=== PATIENT | female | born 1970 | race Caucasian/White ===

== ENCOUNTER 2023-04-29 00:46 | Observation (INO) | payer BC, SELFPAY ==
[2023-04-29] VITALS (10 sets, daily range): BP systolic 155–197; BP diastolic 76–97; PULSE 54–67; RESP 12–22; TEMP 36.8–36.9; O2SAT 91–100; BMI 30.9
--- NOTE | 2023-04-29 01:02 | CT_ITS ---
PROCEDURE INFORMATION: Exam: CT Abdomen And Pelvis With Contrast Exam date and time: 04/29/2023 1:34 AM Age: 52 years old Clinical indication: Abdominal pain; Epigastric; Additional info: Epigastric ap TECHNIQUE: Imaging protocol: Computed tomography of the abdomen and pelvis with contrast. Radiation optimization: All CT scans at this facility use at least one of these dose optimization techniques: automated exposure control; mA and/or kV adjustment per patient size (includes targeted exams where dose is matched to clinical indication); or iterative reconstruction. Contrast material: ISOVUE; Contrast volume: 75 ml; Contrast route: IV; REPORTING DATA: Count of CT and Cardiac NM exams in prior 12 months: This patient has received 0 known CTs and 0 known cardiac nuclear medicine studies in the 12 months prior to the current study. COMPARISON: No relevant prior studies available. FINDINGS: Liver: There are low-density lesions in the liver which most likely reflect a combination of cysts and/or hemangiomas. Gallbladder and bile ducts: The patient is status post cholecystectomy. Pancreas: The pancreas is of normal size and morphology, without evidence of masses, cysts, or calcifications. The pancreatic duct is not dilated. Spleen: The spleen is normal in size and attenuation. No splenic masses or cysts are observed. Adrenal glands: The adrenal glands appear normal. Kidneys and ureters: Both kidneys are of normal size and show uniform attenuation. There are no renal masses, cysts, or calculi. The adrenal glands appear normal. Stomach and bowel: Mild fluid distention of small-bowel loops. Appendix: No evidence of appendicitis. Intraperitoneal space: Unremarkable. No free air. No significant fluid collection. Vasculature: Multiple pelvic phleboliths are present. Lymph nodes: No enlarged or pathological lymph nodes are identified in the abdomen or pelvis. Urinary bladder: Unremarkable as visualized. Reproductive: The patient has undergone prior hysterectomy. Bones/joints: The visualized osseous structures of the abdomen and pelvis appear intact and normal for patient age with no evidence of fractures or lytic or sclerotic lesions. Soft tissues: There is a small fat containing umbilical hernia. IMPRESSION: 1. No definite signs of inflammatory conditions, masses, adenopathy, or collections were observed in the abdomen or pelvis at the time of imaging. Additionally, the urinary tract and gastrointestinal system did not show any evidence of obstruction on the images acquired. 2. Otherwise, incidental findings as above.
--- NOTE | 2023-04-29 01:04 | HMH.EDGENADL ---
Discharge Plan Disposition Patient Disposition: Admitted Condition: Good Chief Complaint: Abdominal Pain Prescriptions Prescriptions: No Action cyclobenzaprine 10 MG tablet 10 mg PO TID PRN (Reason: MUSCLE RELAXER) levothyroxine 75 MCG tablet 75 mcg PO DAILY estradiol 1 MG tablet 1 mg PO DAILY diclofenac potassium 50 MG tablet 50 mg PO BID gabapentin 300 MG capsule 300 mg PO BID azithromycin 250 MG tablet 250 mg PO UD DOSE PK Qty: 6 0RF Rx Instructions: Take two (2) tablets today, then one (1) tablet days #2 thru #5 methylprednisolone 4 MG tablets,dose pack 4 mg PO DIRECTED 6 Days Qty: 21 0RF kggjzrrqyijoxts-ceeiepylb-XV 118 ML syrup 5 ml PO Q6HP PRN (Reason: Cough) Qty: 240 0RF Referrals Follow up/Referrals: Fadi Montesinos APRN [Primary Care Provider] - See instructions Clinical Impressions Clinical Impression: Abdominal pain Instructions Patient Instructions: DI for Acute Abdominal Pain Discharge ED Provider: Charu Kurtz General Adult HPI General Chief complaint: Abdominal Pain Stated complaint: Stomach pain with vomiting Time Seen by Provider: 04/29/23 00:56 History of Present Illness HPI narrative: Patient has a PMHx significant for hyperlipidemia, diabetes, anxiety, depression who presents to the ED with complaints of epigastric abdominal pain. Patient notes that since 4:30 PM this afternoon, she has been having worsening epigastric abdominal pain. Patient describes the pain as a stabbing sensation shooting towards her back and into her chest patient Dors is nausea vomiting with 4 episodes of emesis, all nonbloody. Patient denies any prior history of excessive alcohol use or pancreatitis. Related Data Home Medications Medication Instructions Recorded Confirmed cyclobenzaprine 10 mg tablet 10 mg PO TID PRN MUSCLE RELAXER 01/29/19 01/29/19 diclofenac potassium 50 mg tablet 50 mg PO BID Pain 01/29/19 01/29/19 estradiol 1 mg tablet 1 mg PO DAILY ESTROGEN REPLACEMENT 01/29/19 01/29/19 gabapentin 300 mg capsule 300 mg PO BID Pain 01/29/19 01/29/19 levothyroxine 75 mcg tablet 75 mcg PO DAILY THYROID REPLACEMENT 01/29/19 01/29/19 Previous Rx's Medication Instructions Recorded azithromycin 250 mg tablet 250 mg PO UD DOSE PK #6 tabs 01/29/19 uilqsyhkusnbnwc-oocnjlmtyiomzyk-LP 5 ml PO Q6HP PRN Cough ##240 01/29/19 2 mg-30 mg-10 mg/5 mL oral syrup methylprednisolone 4 mg tablets in 4 mg PO DIRECTED 6 days ##21 01/29/19 a dose pack Allergies Allergy/AdvReac Type Severity Reaction Status Date / Time acetaminophen [From Lortab] Allergy Verified 01/29/19 14:33 codeine Allergy Verified 01/29/19 14:33 hydrocodone [From Lortab] Allergy Verified 01/29/19 14:33 Tetracyclines Allergy Verified 01/29/19 14:33 tramadol Allergy Verified 01/29/19 14:33 PFSH PFS Disclaimer: The information contained in this section may have been updated after the patient was seen, as this information can be updated by other users. Social History Smoking Status: Current every day smoker tobacco type: cigarettes packs per day: 1 alcohol intake: never current occupational status: other Travel in the last 8 weeks: None ROS Obtained: Yes All systems reviewed & no additional complaints except as documented Physical Exam General General appearance: alert and in no apparent distress Head Head exam: atraumatic, normocephalic and normal inspection Eye Eye exam: Present normal appearance, PERRL and EOMI; Absent scleral icterus or nystagmus ENT ENT exam: Present normal exam, mucous membranes moist and normal external ear exam Neck Neck exam: Present normal inspection, full ROM and trachea midline Chest Chest inspection: Present normal inspection and symmetric chest wall rise; Absent tenderness Respiratory Respiratory exam: Present normal lung sounds bilaterally; Absent respiratory distress, wheezes or accessory muscle use Cardiov
[2023-04-29 01:17] LABS: Basophils % 0.2 % (0.1-2.0); Eosinophils # 0.1 K/mm3 (0.0-0.4); Hematocrit 41.2 % (37.0-47.0); Hemoglobin 13.7 g/dL (12.2-16.2); Lymphocytes % 9.4 % (10-50); Mean Corpuscular HGB Conc 33.3 g/dL (31.8-35.4); Mean Corpuscular Hemoglobin 29.4 pg (27.0-31.2); Mean Corpuscular Volume 88.3 fl (81-99); Mean Platelet Volume 8.6 fl (7.4-10.4); Monocytes # 0.3 K/mm3 (0.1-1.0); Monocytes % 2.3 % (1.7-9.3); Neutrophils # 9.4 K/mm3 (1.8-7.8); Neutrophils % 87.1 % (37.0-80.0); Platelet Count 269 K/mm3 (142-424); Red Blood Count 4.67 M/mm3 (4.20-5.40); White Blood Count 10.8 K/mm3 (4.8-10.8)
[2023-04-29 01:21] LABS: MANUAL DIFFERENTIAL MANUAL DIFFERENTIAL (MANUAL DIFF)
[2023-04-29 01:28] LABS: Alanine Aminotransferase 39 U/L (12-78); Albumin Level 4.7 g/dl (3.5-5.0); Albumin/Globulin Ratio 1.4 (1.1-1.8); Alkaline Phosphatase 128 U/L (38-126); Anion Gap 11.6 mEq/L (5-15); Aspartate Amino Transferase 36 U/L (14-36); Bilirubin,Total 0.4 mg/dl (0.2-1.3); Blood Urea Nitrogen 12 mg/dl (7-17); Calcium 9.3 mg/dl (8.4-10.2); Carbon Dioxide 23 mmol/L (22.0-30.0); Chloride 103 mmol/L (98-107); Creatinine Clearance Estimated 119 mL/min (50-200); Estimated Glomerular Filt Rate 88 ml/min (>60); GFR (African American) 107 ML/MIN (>60); Globulin 3.3 g/dL (1.3-3.2); Glucose 174 mg/dl (74-100); Lipase 75 U/L (23-300); Potassium 3.6 mmoL/L (3.5-5.1); Sodium 134 mmol/L (136-145)
[2023-04-29 01:29] LABS: Microscopic, Urine URINE MICROSCOPIC (MICROSCOPIC)
[2023-04-29 01:32] LABS: Appearance,Urine CLEAR (Clear); Bilirubin,Urine Negative (Negative); Blood, Urine TRACE-I (Negative); Color,Urine YELLOW (Yellow); Glucose,Urine (UA) TRACE (Negative); Ketones,Urine 1+ (Negative); Leukocyte Esterase,Urine Negative (Negative); Nitrate,Urine Negative (Negative); PH,Urine 8.5 (5.0-8.5); Protein,Urine TRACE (Negative); Urobilinogen,Urine 0.2 EU/dl (0.2)
[2023-04-29 01:32] LABS: Lactic Acid 3.1 mmol/L (0.7-2.1)
[2023-04-29 01:37] LABS: Eosinophils % 2 % (0-3); Lymphocytes % 11 % (10-50); Monocytes % 2 % (2-9); Neutrophils % 85 % (42-76); Platelet Estimate Normal; RBC Morphology Normal; Total Cells Counted 100
[2023-04-29 01:40] LABS: Troponin I < 0.01 ng/ml (0.00-0.034)
--- NOTE | 2023-04-29 01:42 | ECG_ITS ---
APPROVED REPORT Exam: Resting ECG HR:58 bpm ECG Measurements Heart Rate 58 AXES AR 156 P 43 QRSd 96 QRS 63 QT 469 T 48 QTc 466 Conclusion SINUS BRADYCARDIA MODERATE ST DEPRESSION [0.05+ mV ST DEPRESSION] ABNORMAL ECG UNCONFIRMED REPORT Electronically signed by : Ottoniel Manzo MD 04/29/2023 08:25:32
[2023-04-29 01:47] LABS: Squamous Epithelial Cell,Urine Occasional #/hpf (0-5)
[2023-04-29 03:09] LABS: Reflex Lactic Add Lactic Reflex
[2023-04-29 03:23] LABS: Lactic Acid Follow Up (RFLX 1) 2.9 mmol/L (0.7-2.1)
[2023-04-29 03:36] LABS: Troponin I < 0.01 ng/ml (0.00-0.034)
--- NOTE | 2023-04-29 03:40 | PC.NURSE ---
OBSERVATION ADMISSION TO 279 WITH DX OF LACTIC ACIDOSIS TO THE HOSPITALIST.
--- NOTE | 2023-04-29 03:45 | PC.NURSE ---
Report receieved from Staci rn, pt coming up via wheelchair
--- NOTE | 2023-04-29 03:45 | PC.NURSE ---
Report called to ROXY Chen
--- NOTE | 2023-04-29 04:38 | EXP.HPDC ---
General Admission date:: 04/29/23 Discharge date: 04/29/23 *Admission Date: 04/29/23 *Chief complaint: abdominal pain *History of present illness: Patient has a PMHx significant for hyperlipidemia, diabetes, anxiety, depression who presents to the ED with complaints of epigastric abdominal pain. Patient notes that since 4:30 PM this afternoon, she has been having worsening epigastric abdominal pain. Patient describes the pain as a stabbing sensation shooting towards her back and into her chest patient Dors is nausea vomiting with 4 episodes of emesis, all nonbloody. Patient denies any prior history of excessive alcohol use or pancreatitis. [facility] Disclaimer: The information contained in this section may have been updated after the patient was seen, as this information can be updated by other users. Medical History (Updated 04/29/23 @ 05:00 by Valentín Rolon APRN) COPD (chronic obstructive pulmonary disease) Diabetes mellitus type 1 Fibromyalgia History of gastroesophageal reflux (GERD) Surgical History (Updated 04/29/23 @ 04:06 by April Santiago RN) History of cholecystectomy History of colonoscopy History of hysterectomy Social History (Updated 04/29/23 @ 04:07 by April Santiago RN) Smoking Status: Current every day smoker tobacco type: cigarettes packs per day: 1 alcohol intake: never current occupational status: other Travel in the last 8 weeks: None marital status: single Review of Systems Review of Systems Review of systems:: pertinent systems reviewed and negative unless documented below Exam Data for Last 24 hours Vital signs and Labs for Last 24 Hours: Temp Pulse Resp BP Pulse Ox O2 Del Method 98.5 F 65 18 155/76 H 98 Room Air 04/29/23 04:18 04/29/23 04:18 04/29/23 04:18 04/29/23 04:18 04/29/23 04:19 04/29/23 04:19 Laboratory Results - last 24 hr 04/29/23 01:05: WBC 10.8, RBC 4.67, Hgb 13.7, Hct 41.2, MCV 88.3, MCH 29.4, MCHC 33.3, RDW 15.0, Plt Count 269, MPV 8.6, Neut % (Auto) 87.1 H, Lymph % (Auto) 9.4 L, [place] % (Auto) 2.3, Eos % (Auto) 1.0, Baso % (Auto) 0.2, Neut # (Auto) 9.4 H, Lymph # (Auto) 1.0, [place] # (Auto) 0.3, Eos # (Auto) 0.1, Baso # (Auto) 0.0, Total Counted 100, Neutrophils % (Manual) 85 H, Lymphocytes % (Manual) 11, Monocytes % (Manual) 2, Eosinophils % (Manual) 2, Platelet Estimate Normal, RBC Morphology Normal, Sodium 134 L, Potassium 3.6, Chloride 103, Carbon Dioxide 23, Anion Gap 11.6, BUN 12, Creatinine 0.70, Estimated Creat Clear 119, Estimated GFR 88, Est GFR ( Amer) 107, Glucose 174 H, Lactate 3.1 H, Calcium 9.3, Total Bilirubin 0.4, AST 36, ALT 39, Alkaline Phosphatase 128 H, Troponin I < 0.01, Total Protein 8.0, Albumin 4.7, Globulin 3.3 H, Albumin/Globulin Ratio 1.4, Lipase 75 04/29/23 01:22: Urine Color Yellow, Urine Appearance Clear, Urine pH 8.5, Ur Specific [place] 1.020, Urine Protein Trace, Urine Glucose (UA) Trace, Urine Ketones 1+, Urine Blood Trace-i, Urine Nitrate Negative, Urine Bilirubin Negative, Urine Urobilinogen 0.2, Ur Leukocyte Esterase Negative, Urine RBC 3-5, Urine WBC None, Ur Squamous Epith Cells Occasional 04/29/23 03:04: Lactate 2.9 H, Troponin I < 0.01 I & O for Last 24 hours: Intake & Output 04/26/23 04/27/23 04/28/23 04/29/23 23:59 23:59 23:59 23:59 Weight 79.379 kg Constitutional Constitutional: no acute distress and cooperative *Routine HEENT Exam Head: Present normocephalic and atraumatic Eye: Present EOMI, PERRL and normal accommodation ENT: Present mucous membranes moist *Routine Neck Exam Neck: Present supple, full ROM and trachea midline *Routine Respiratory Exam Respiratory: Present normal respiratory effort, able to speak in complete sentences and symmetric chest movement *Routine Cardiovascular Exam Cardiovascular: Present RRR, Normal S1 and Normal S2 *Routine Abdominal Exam Abdominal: Present soft and normoactive bowel sounds; Absent organomegaly *Routine Rectal Exam Rectal:: deferred *R
--- NOTE | 2023-04-29 04:43 | PC.NURSE ---
Dischage education gone over at this time, questions encouraged and answered. iv taken out at this time, pt tolerated well
[2023-04-29 05:09] LABS: Reflex Lactic (2 hrs) Add Lactic Reflex
== END 2023-04-29 04:45 | disposition home or self-care (01) ==
LOC: ER 03:41 → OB 04:25
PROVIDERS: Admitting Provider Internal Medicine Adolescent Medicine; Emergency Provider Emergency Medicine; PCP Nurse Practitioner Family; Visit Provider Internal Medicine Adolescent Medicine
DX: R10.13 Epigastric pain (principal); K29.00 Acute gastritis without bleeding; E78.5 Hyperlipidemia, unspecified; F41.9 Anxiety disorder, unspecified; F32.A Depression, unspecified; J44.9 Chronic obstructive pulmonary disease, unspecified; M79.7 Fibromyalgia; K21.9 Gastro-esophageal reflux disease without esophagitis; F17.210 Nicotine dependence, cigarettes, uncomplicated; E11.9 Type 2 diabetes mellitus without complications
CPT/HCPCS: 74177; 80053; 81001; 83605; 83690; 84484; 85007; 85025; 93005; G0378; J2405; Q9967